=== PATIENT | female | born 1955 | race Asian ===

== ENCOUNTER 2021-02-17 03:13 | Emergency (ER) | payer OTHER, SELFPAY ==
[2021-02-17] VITALS (9 sets, daily range): BP systolic 172–207; BP diastolic 74–98; PULSE 88–125; RESP 17–23; TEMP 36.3; O2SAT 96–100; BMI 24.7
--- NOTE | 2021-02-17 03:24 | ED.GENADULT ---
HPI - General Adult General Chief complaint: Shortness of Breath/Dyspnea Stated complaint: cough/trouble breathing x1 hour Time Seen by Provider: 02/17/21 03:24 History of Present Illness HPI narrative: 65-year-old woman with no significant medical history and specifically no history of asthma COPD your previous wheeze presents with acute onset of wheezing and dyspnea. She states she was driving home from work and used a single packet of [id number] cough and cold medication. She states that she had done this yesterday and helped her fall asleep after she got home. Chief poured the packet into some hot water in the car and after the 1st sip she began significantly coughing then wheezing. She comes in today for further evaluation. To this event she was actually feeling completely normal. No fevers, chills no coughing earlier today. No abdominal pain vomiting, diarrhea. No headaches or myalgias. Related Data Previous Rx's Medication Instructions Recorded methylprednisolone 4 mg tablets in See Rx Instructions .ROUTE 02/17/21 a dose pack (Medrol (Humza)) .COMPLEX #21 ea Allergies Allergy/AdvReac Type Severity Reaction Status Date / Time No Known Drug Allergies Allergy Verified 02/17/21 03:30 Review of Systems Review of Systems Narrative: Remainder of complete review of systems is otherwise unremarkable except for that included in the HPI. Patient History Social History Smoking Status: Never smoker Exam Narrative Exam Narrative: General: Healthy appearing, in no acute distress. Able to give a complete and coherent history. Well-nourished well-developed HEENT: Moist mucous membranes, normal sclera with reactive pupils, Respiratory: Lungs with moderate wheeze in all lung [place]. Full and symmetrical air movement, slightly hoarse voice Cardiac: Regular rate and rhythm no murmurs no bruits Abdomen: Soft, nontender, good bowel tones, no flank pain Skin: Warm and dry, no rashes Neurologic: Grossly neurologically intact with no obvious asymmetries or abnormalities Extremities: No trauma, well perfused Psych: Cooperative, appropriate insight and affect Initial Vital Signs Initial Vital Signs: Vital Signs Temperature 97.3 F L 02/17/21 03:20 Pulse Rate 102 H 02/17/21 03:20 Respiratory Rate 23 02/17/21 03:20 Blood Pressure 207/98 H 02/17/21 03:20 Pulse Oximetry 98 11/03/21 03:20 Course Orders Ordered: ED Orders 02/17/21 03:25 COVID19 -Nasal swab/Pre-Proc Stat 02/17/21 03:59 RT Consult Eval and Treat NOW Discontinued Medications Albuterol (Albuterol 2.5 Mg/3 Ml Neb (Adult)) 2.5 mg INH NOW ONE Stop: 02/17/21 04:25 Last Admin: 02/17/21 04:28 Dose: 2.5 mg Documented by: Albuterol/Ipratropium (Albuterol/Ipratropium 3 Ml Ampul) 3 ml INH NOW ONE Stop: 02/17/21 03:58 Last Admin: 02/17/21 04:03 Dose: 3 ml Documented by: CATAL[place] Prednisone (Prednisone 20 Mg Tablet) 60 mg PO NOW ONE Stop: 02/17/21 04:25 Last Admin: 02/17/21 04:29 Dose: 60 mg Documented by: Vital Signs Vital signs: Vital Signs - 8 hr 02/17/21 03:20 02/17/21 04:03 02/17/21 04:28 Temperature 97.3 F L Pulse Rate 102 H 88 91 H Respiratory Rate 23 18 17 Blood Pressure 207/98 H Pulse Oximetry 98 97 98 Medical Decision Making Lab Data Labs: Lab Results 02/17/21 Range/Units 03:25 SARS-CoV-2 (PCR) Negative (Negative) MDM Narrative Medical decision making narrative: Otherwise healthy 65-year-old woman presents with acute onset dyspnea and wheezing after using a packet of what sounds like a powdered flu therapy in a glass of water. She is COVID negative. She has responded nicely to the albuterol nebulizer and I have given her 60 mg oral prednisone. There is no evidence of rash or upper airway involvement. No tongue or mouth swelling. I suspect that it was exposure to the mental fumes that caused a reactive airway reaction. I have given her a Medrol Dosepak to use at home. Wheezing has resolved enough that I do not think an additional inhaler will be required. I have recommended that she avoid the flu therapy powder. She does going to mention that over the last 6 months she has been noticing mild wheezing particularly at nighttime. I suspect that there is reactive airway disease component that has not yet been diagnosed and she may benefit from additional for follow-up. I suspect that is this worsening baseline that made her airways so immediately reactive to the exposure this evening. Discharge Plan Departure Patient Disposition: Home Clinical Impression: Allergic reaction caused by a drug Qualifiers: Encounter type: initial encounter Qualified Code(s): T78.40XA - Allergy, unspecified, initial encounter Activity Restrictions/Additional Instructions: Thank you for coming in tonight From the description of the events, I think that you had an allergic reaction to the flu medicine that you mixed into the hot water. I suspect that breathing in some of the menthol fumes caused your wheezing. I would recommend that you do not use this [id number] medication again Your wheezing has improved significantly and I expected to continue to get better. There is no sign of infection. I am going to give you a prescription for steroids to use over the next couple of days to prevent any recurrence. Your blood pressure was elevated in the emergency room today. Please check this outside of the emergency room and while you are feeling back at your baseline. Would encourage you to discuss this with your primary care doctor If you feel that your breathing is getting worse or you are developing new symptoms, please return to the ER Prescriptions: New methylprednisolone [Medrol (Humza)] 4 mg tablets,dose pack See Rx Instructions .ROUTE .COMPLEX Qty: 21 RF: 0
[2021-02-17 03:45] LABS: COVID19 -Nasal RAPID Negative (Negative)
[2021-02-17] MEDS: ALBUTEROL/IPRATROPIUM 3 ML AMPUL INH (04:03)
[2021-02-17] MEDS: ALBUTEROL 2.5 MG/3 ML NEB (ADULT) INH (04:28)
[2021-02-17] MEDS: predniSONE 20 MG TABLET 60 MG PO (04:29)
== END 2021-02-17 05:27 | disposition home or self-care (01) ==
PROVIDERS: Emergency Provider Emergency Medicine
DX: R06.00 Dyspnea, unspecified (principal); J45.901 Unspecified asthma with (acute) exacerbation; T78.40XA Allergy, unspecified, initial encounter; Z20.822 Contact with and (suspected) exposure to COVID-19
CPT/HCPCS: 87635; 94640; 99283; C9803; J7613

== ENCOUNTER 2022-03-23 19:14 | Emergency (ER) | payer OTHER, SELFPAY ==
[2022-03-23 19:46] VITALS: BP 209/92; PULSE 77; RESP 15; TEMP 36.5; O2SAT 100; BMI 24.7
[2022-03-23 22:37] VITALS: BP 221/98; PULSE 70; O2SAT 100
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
[2022-03-23 23:17] VITALS: O2SAT 100
[2022-03-23] MEDS: IBUPROFEN 400 MG TABLET PO (23:17)
[2022-03-23] MEDS: ACETAMINOPHEN 325 MG TABLET PO (23:17)
[2022-03-23 23:18] VITALS: BP 224/97; PULSE 70; O2SAT 99
[2022-03-23] MEDS: diazePAM 5 MG TABLET PO (23:25)
[2022-03-23] MEDS: PRAZOSIN 1 MG CAPSULE 2 MG PO (23:34)
== END 2022-03-23 23:54 | disposition home or self-care (01) ==
PROVIDERS: Emergency Provider Emergency Medicine
DX: S16.1XXA Strain of muscle, fascia and tendon at neck level, initial encounter (principal); R51.9 Headache, unspecified; F43.11 Post-traumatic stress disorder, acute; R11.0 Nausea; V89.2XXA Person injured in unspecified motor-vehicle accident, traffic, initial encounter
CPT/HCPCS: 99283

== ENCOUNTER → 2022-07-28 18:30 | Outpatient (CLI) | payer OTHER, SELFPAY ==
--- NOTE | 2022-07-28 | DI.MRI.S_ITS ---
PROCEDURE: MR CERVICAL SPINE WO CON INDICATIONS: Pain in arm, unspecified TECHNIQUE: Noncontrast sagittal T1 spin echo and T2 fast spin echo, sagittal STIR, foraminal oblique sagittal T2 fast spin echo, and axial gradient echo or T2 fast spin echo through the cervical spine. COMPARISON: None. FINDINGS: Image quality: Excellent. Alignment and Curvature: Trace anterolisthesis of C3 on C4. Trace anterolisthesis of C4 on C5. Bone Marrow: Marrow demonstrates normal overall signal. Spinal Cord: Visualized spinal cord has normal size and signal. No cerebellar tonsillar herniation. Paraspinous Soft Tissues: No paravertebral masses. Prevertebral soft tissues are normal in thickness. C2-C3: AP diameter of the canal is 11.3 mm. Right facet hypertrophy. No significant foraminal stenosis. C3-C4: Mild disc bulge with minimal superimposed central posterior disc protrusion mildly indenting on the cord. Right facet hypertrophy. Posterior ligamentous hypertrophy. AP diameter of the canal is 8.4 mm. Moderate to severe right foraminal narrowing with a degree of right foraminal C4 nerve root impingement. C4-C5: Diffuse disc bulge indenting on the ventral cord. AP diameter of the canal is 8.1 mm. No significant foraminal stenosis. C5-C6: Diffuse posterior disc bulge. Bilateral uncovertebral joint hypertrophy. There is flattening on the ventral cord. AP diameter of the canal is 7.4 mm. There is severe left lateral recess stenosis. There is moderate right foraminal narrowing. There is moderate to severe left foraminal narrowing with a degree of left foraminal C6 nerve root impingement. Bilateral facet hypertrophy. C6-C7: Diffuse disc bulge with superimposed left paracentral disc protrusion flattening the cord. AP diameter of the canal is 8.4 mm. No foraminal stenosis. C7-T1: Normal appearance. IMPRESSION: 1. There is multilevel spondylitic change. 2. Canal stenosis is moderate at C3-C4, moderate to severe at C4-C5. Severe at C5-C6, and moderate at C6-C7. 3. Multilevel foraminal narrowing as described above. Findings include moderate to severe right foraminal narrowing at C3-C4, and moderate to severe left foraminal narrowing at C5-C6. Dictated by: Miller Maria M.D. on 07/29/2022 at 8:44 Approved by: Miller Maria M.D. on 07/29/2022 at 8:55
--- NOTE | 2022-07-28 | DI.MRI.S_ITS ---
PROCEDURE: MR ELBOW LT W CON INDICATIONS: Pain in arm, unspecified TECHNIQUE: Noncontrast coronal proton density fast spin echo and T2 fast spin echo with fat saturation, axial and sagittal T1 spin echo and T2 fast spin echo with fat saturation through the elbow. COMPARISON: None. FINDINGS: Image quality: Excellent. Lateral structures: The lateral ulnar collateral ligament and radial collateral ligament both appear thickened with surrounding soft tissue edema.. The overlying common extensor tendon also appears thickened with intrasubstance T2 hyperintense signal at its lateral epicondylar insertion. Medial structures: The ulnar collateral ligament appears intact. The overlying common flexor tendon appears normal. The ulnar nerve appears normal in size and signal within the cubital tunnel. Anterior structures: The biceps and brachialis tendons both appear intact as they insert onto the proximal radius and ulna, respectively. No bicipitoradial bursal fluid. The median and radial neurovascular bundles appear normal; no focal muscle atrophy to suggest nerve impingement. Posterior structures: The conjoint triceps tendon from the long and lateral heads appears intact. The medial head of the triceps tendon also appears normal, with direct muscle insertion onto the olecranon. No olecranon bursal fluid. Bone and cartilage: No bone marrow contusions or fractures. No osteochondral injuries. IMPRESSION: 1. Finding is consistent with lateral epicondylitis with tendinosis and low-grade partial-thickness tear involving common extensor tendon origin and underlying sprain/low-grade partial-thickness tear involving lateral collateral ligaments. 2. No marrow edema. No fracture or dislocation. Rest of the elbow tendons and ligaments are intact. Dictated by: Winston Mccormack M.D. on 07/29/2022 at 8:15 Approved by: Winston Mccormack M.D. on 07/29/2022 at 8:40
--- NOTE | 2022-07-28 | DI.MRI.S_ITS ---
PROCEDURE: MR SHOULDER LT WO CON INDICATIONS: Pain in arm, unspecified TECHNIQUE: Noncontrast oblique coronal T2 fast spin echo with fat saturation, oblique sagittal T1 spin echo and T2 fast spin echo with fat saturation, axial T1 spin echo and T2 fast spin echo with fat saturation through the shoulder. COMPARISON: None. FINDINGS: Image quality: Excellent. Rotator cuff: There is mild supraspinatus and subscapularis tendinosis without full-thickness tendon tear. The infraspinatus tendon appears intact. Sagittal images demonstrate no rotator cuff muscle atrophy. Bones and bursae: No bone marrow contusions or fractures. Mild acromioclavicular and glenohumeral joint degeneration. The acromion demonstrates conventional anatomy, without an os acromiale. Small subcoracoid bursal fluid is present, suggesting mild bursitis. Capsule and soft tissues: Labrum appears intact. The long head of the biceps tendon demonstrates normal location and morphology. The rotator interval appears normal, without fibrosis. The coracohumeral ligament is normal in thickness. IMPRESSION: 1. Mild supraspinatus and subscapularis tendinosis. No full-thickness tendon tear. No rotator cuff muscle atrophy. 2. Mild acromioclavicular and glenohumeral joint degeneration. 3. Mild subcoracoid bursitis. Dictated by: Reno Hatch M.D. on 07/29/2022 at 8:00 Approved by: Reno Hatch M.D. on 07/29/2022 at 18:55
== END ==
PROVIDERS: Family Provider Family Medicine; PCP Family Medicine; Referring Provider Chiropractor; Visit Provider Chiropractor
DX: S56.512A Strain of other extensor muscle, fascia and tendon at forearm level, left arm, initial encounter (principal); S13.4XXA Sprain of ligaments of cervical spine, initial encounter; S53.442A Ulnar collateral ligament sprain of left elbow, initial encounter; M47.812 Spondylosis without myelopathy or radiculopathy, cervical region; M48.02 Spinal stenosis, cervical region; M19.012 Primary osteoarthritis, left shoulder; M75.52 Bursitis of left shoulder; M79.602 Pain in left arm; V89.2XXA Person injured in unspecified motor-vehicle accident, traffic, initial encounter
CPT/HCPCS: 72141; 73221